=== PATIENT | female | born 2000 | race Caucasian/White ===

== ENCOUNTER → 2018-02-03 12:13 | Outpatient (CLI) | payer OTHER, SELFPAY ==
[2018-02-03 20:08] LABS: Urine N gonorrhoeae NOT DETECTED
[2018-02-03 20:15] LABS: Urine Chlamydia NOT DETECTED
== END ==
PROVIDERS: Family Provider Pediatrics; PCP Pediatrics; Visit Provider Specialist
DX: Z11.3 Encounter for screening for infections with a predominantly sexual mode of transmission (principal); Z11.8 Encounter for screening for other infectious and parasitic diseases
CPT/HCPCS: 87491; 87591

== ENCOUNTER → 2018-03-28 10:28 | Outpatient (CLI) | payer OTHER, SELFPAY ==
[2018-03-28 11:05] LABS: Appearance Urine UA SL CLOUDY; Bilirubin Urine UA NEGATIVE (NEGATIVE); Color Urine UA YELLOW; Glucose Urine UA NEGATIVE (Normal); Ketones Urine UA TRACE (NEGATIVE); Leukocyte Esterase Urine UA 1+ (NEGATIVE); Nitrite Urine UA Negative (Negative); Occult Blood Urine UA TRACE-LYSED (Negative); Protein Urine UA TRACE (Negative); Urobilinogen Urine UA 0.2 E.U./dL (0.2); pH Urine UA 6.5 (4.5-8.0)
[2018-03-28 11:52] LABS: RBC Urine 1-5/HPF (0-5/HPF)
[2018-03-28 11:53] LABS: Bacteria Urine Many (>30); Culture Indicated Urine Specimen Cultured; Mucus Urine 1+ (Negative); WBC Urine >100/HPF (0-5/HPF)
[2018-03-28 12:30] LABS: Urine N gonorrhoeae NOT DETECTED
[2018-03-28 13:43] LABS: Urine Chlamydia NOT DETECTED
== END ==
PROVIDERS: Family Provider Pediatrics; PCP Pediatrics; Visit Provider Specialist
DX: R30.0 Dysuria (principal); R82.90 Unspecified abnormal findings in urine
CPT/HCPCS: 81001; 87077; 87086; 87186; 87491; 87591

== ENCOUNTER → 2019-03-05 09:12 | Outpatient (CLI) | payer OTHER, SELFPAY ==
[2019-03-05 10:40] LABS: HCG Quantitative /Beta subunit 34525 mIU/mL
== END ==
PROVIDERS: Visit Provider Specialist
DX: O26.90 Pregnancy related conditions, unspecified, unspecified trimester (principal); Z32.01 Encounter for pregnancy test, result positive
CPT/HCPCS: 36415; 84702

== ENCOUNTER → 2019-03-21 12:33 | Outpatient (CLI) | payer MEDICAID, SELFPAY ==
[2019-03-21 13:06] LABS: Add Manual Diff / Slide Review NO; Basophils Absolute Auto 0 /uL (0-100); Basophils Percent Auto 0.6 % (0-2); Eosinophils Absolute Auto 0 /uL (0-450); Eosinophils Percent Auto 0.3 % (2-4); Hematocrit 39.7 % (36-46); Hemoglobin 13.5 g/dL (12.0-16.0); Lymphocytes Absolute Auto 1800 /uL (1100-4500); Lymphocytes Percent Auto 32.8 % (25-40); Mean Corpuscular HGB Conc 34.1 % (30-36); Mean Corpuscular Hemoglobin 30.4 PG (26-34); Mean Corpuscular Volume 89.3 fL (80-100); Monocytes Absolute Auto 400 /uL (0-900); Monocytes Percent Auto 6.9 % (3-14); Neutrophils Absolute Auto 3300 /uL (1500-7000); Neutrophils Percent Auto 59.4 % (50-75); Platelet Count 198 X10^3/uL (150-400); Red Blood Cell Count 4.45 X10^6/uL (4.0-5.2); Red Cell Distribution Width 13.3 % (11.6-14.8); White Blood Cell Count 5.5 X10^3/uL (4.5-11.0)
[2019-03-21 13:06] LABS: Appearance Urine UA CLEAR; Bilirubin Urine UA NEGATIVE (NEGATIVE); Color Urine UA YELLOW; Glucose Urine UA NEGATIVE (Negative); Ketones Urine UA 3+ (NEGATIVE); Leukocyte Esterase Urine UA NEGATIVE (NEGATIVE); Nitrite Urine UA NEGATIVE (Negative); Occult Blood Urine UA NEGATIVE (Negative); Protein Urine UA TRACE (Negative); Urobilinogen Urine UA 0.2 E.U./dL (0.2)
[2019-03-21 17:11] LABS: Hepatitis B Surface Antigen NEGATIVE s/c (NEGATIVE)
[2019-03-21 17:28] LABS: HIV 1 & 2 Ab/Ag 4th Gen Combo NEGATIVE (NEGATIVE); Hep C Virus Ab w/Reflex Quant NEGATIVE s/c (NEGATIVE)
[2019-03-23 22:07] LABS: RPR Screen Nonreactive (Nonreactive)
== END ==
PROVIDERS: Visit Provider Obstetrics & Gynecology
DX: Z34.91 Encounter for supervision of normal pregnancy, unspecified, first trimester (principal)
CPT/HCPCS: 36415; 80055; 81003; 86787; 86803; 86850; 86900; 86901; 87086; 87389

== ENCOUNTER → 2019-03-26 14:16 | Outpatient (CLI) | payer OTHER, SELFPAY ==
[2019-03-26 16:51] LABS: Urine Chlamydia NOT DETECTED; Urine N gonorrhoeae NOT DETECTED
== END ==
PROVIDERS: Visit Provider Obstetrics & Gynecology
DX: Z11.3 Encounter for screening for infections with a predominantly sexual mode of transmission (principal)
CPT/HCPCS: 87491; 87591

== ENCOUNTER → 2019-06-15 14:20 | Outpatient (CLI) | payer OTHER, MEDICAID, SELFPAY ==
--- NOTE | 2019-06-15 14:22 | DI.US.S_ITS ---
PROCEDURE: US OB >= 14 WEEKS FETUS INDICATIONS: ANATOMY OUTSIDE/PRIOR DATING DATA: Last menstrual period (LMP): 01/15/19. LMP-based estimated date of delivery (YAHIR): 10/22/19. First dating scan (date and location): 04/05/19. Estimated date of delivery (YAHIR) from first dating scan: 10/27/19. TECHNIQUE: Real-time scanning was performed of the fetus, with image documentation and biometric measurements. COMPARISON: [facility], , OB >= 14 WEEKS FETUS, 05/24/2019, 16:00. FINDINGS: General: A single living intrauterine gestation is present. Presentation: Vertex. Placenta: Placental position is anterior, without previa. Amniotic fluid index: 14.0 cm, normal range is 5-24 cm. heart rate: 144 beats per minute. Maternal cervical canal: 3.1 cm long. Normal lower limit is 2.5 cm. biometrics: Biparietal diameter: 22 weeks Head circumference: 21 weeks 6 days Abdominal circumference: 21 weeks 6 days Femur length: 20 weeks 1 day Estimated gestational age from initial scan: 20 weeks 6 days Composite gestational age from present scan: 21 weeks 3 days Estimated weight and percentile: Prior 7 g; 65th percentile Measurement variability for biometric dating: +/- 7 days from 14 weeks to 15 weeks 6 days gestation, +/- 10 days from 16 weeks to 21 weeks 6 days gestation, +/- 2 weeks from 22 weeks to 27 weeks 6 days gestation, +/- 3 weeks for 28 weeks gestation or later. weight reference: 4500 g or EFW >90/95% is considered macrosomia or large for gestational age. EFW <10% is small for gestational age. EFW 5% or less is considered intra-uterine growth restriction. Anatomic survey: Neuro: Ventricles are non-dilated at less than 10 mm. Cisterna magna is normal at 3-11 mm. Cerebellum is normal in size and morphology. Nuchal skin fold: Normal at less than 6 mm between 14-21 weeks gestational age. Face: Nose and lips, facial profile are normal. Spine: No evidence for spina bifida. Heart: 4-chambered heart is present, with normal ventricular outflow tracts. Diaphragm: Diaphragm is intact. Stomach: Left-sided stomach is present. Kidneys: No hydronephrosis. Normal is less than 5 mm in 2nd trimester, less than 7 mm in 3rd trimester. Cord: 3-vessel cord has orthotopic insertion. Bladder: Normal in size. Extremities: All 4 extremities identified. IMPRESSION: 1. Single living IUP redemonstrated and interval growth is normal. 2. Normal anatomic survey. Dictated by: Dev SHER Interpreted: Thomas Argueta MD on 06/15/2019 at 15:04 Approved by: Thomas Argueta M.D. on 06/15/2019 at 16:52
== END ==
PROVIDERS: Visit Provider Obstetrics & Gynecology
DX: Z34.02 Encounter for supervision of normal first pregnancy, second trimester (principal); Z3A.21 21 weeks gestation of pregnancy
CPT/HCPCS: 76811

== ENCOUNTER → 2019-08-20 10:22 | Outpatient (CLI) | payer OTHER, MEDICAID, SELFPAY ==
[2019-08-20 12:07] LABS: Hematocrit 32.7 % (36-46); Hemoglobin 11.2 g/dL (12.0-16.0)
[2019-08-20 12:16] LABS: GTT (PREG) 1 Hour PP 50gm Dose 70 mg/dL (76-139)
== END ==
PROVIDERS: PCP Family Medicine; Referring Provider Family Medicine; Visit Provider Family Medicine
DX: Z34.83 Encounter for supervision of other normal pregnancy, third trimester (principal); Z3A.28 28 weeks gestation of pregnancy
CPT/HCPCS: 82950; 85014; 85018

== ENCOUNTER → 2019-10-05 12:20 | Outpatient (CLI) | payer OTHER, MEDICAID, SELFPAY ==
[2019-10-06 09:37] LABS: Strep Grp B PCR NEG for Grp B Strep
== END ==
PROVIDERS: PCP Family Medicine; Visit Provider Family Medicine
DX: Z34.03 Encounter for supervision of normal first pregnancy, third trimester (principal)
CPT/HCPCS: 87653

== ENCOUNTER 2019-10-29 22:05 | Observation (INO) | payer OTHER, MEDICAID, SELFPAY ==
--- NOTE | 2019-10-29 23:44 | PM.OBTRLD ---
Visit Information Visit Information Date of evaluation: 10/29/19 Primary OB Provider: Nadia Peterson On-call OB Provider: Re Painter Reason for Evaluation: Yes rule out labor Vital Signs Vital Signs: BP 128/85, HR105, T97.1F Temporal PFSH Medical History CVS disease (Chronic) Heavy menstrual period (Chronic) Social History Smoking Status: Never smoker Review of Systems Review of Systems ROS: Yes All systems reviewed with the patient and are negative except as otherwise documented Exam Narrative Exam Narrative: CE by RN: /-3, posterior, intact, cephalic Evaluation Evaluation Baseline heart rate: 135 Variability: Moderate (11-25) monitor accelerations: Present monitor decelerations: Absent Contraction Frequency (minutes): 3 Uterine Contraction Intensity: Moderate Category of Tracing: I Cervical dilation (cm): 2 Cervical effacement (%): 75 station: -3 Diagnosis, Plan/Disposition Plan/Disposition Plan: RN to repeat CE in 2 hours. If no change or <3cm, d/c to home. If >3cm, admit for labor. OB Disposition: home
== END 2019-10-30 00:15 | disposition home or self-care (01) ==
PROVIDERS: Admitting Provider Nurse Practitioner Obstetrics & Gynecology; PCP Family Medicine; Referring Provider Nurse Practitioner Obstetrics & Gynecology; Visit Provider Nurse Practitioner Obstetrics & Gynecology
DX: O47.9 False labor, unspecified (principal)
CPT/HCPCS: 59025; 59050; G0378; G0379

== ENCOUNTER 2019-10-30 05:38 | Inpatient (IN) | payer OTHER, MEDICAID, SELFPAY ==
[2019-10-30 06:58] LABS: Add Manual Diff / Slide Review NO; Basophils Absolute Auto 0 /uL (0-100); Basophils Percent Auto 0.1 % (0-2); Eosinophils Absolute Auto 0 /uL (0-450); Hemoglobin 11.8 g/dL (12.0-16.0); Lymphocytes Absolute Auto 1000 /uL (1100-4500); Lymphocytes Percent Auto 7.2 % (25-40); Mean Corpuscular HGB Conc 32.8 % (30-36); Mean Corpuscular Hemoglobin 29.3 PG (26-34); Mean Corpuscular Volume 89.4 fL (80-100); Monocytes Absolute Auto 700 /uL (0-900); Monocytes Percent Auto 5.2 % (3-14); Neutrophils Absolute Auto 12200 /uL (1500-7000); Neutrophils Percent Auto 87.5 % (50-75); Platelet Count 256 X10^3/uL (150-400); Red Blood Cell Count 4.03 X10^6/uL (4.0-5.2); Red Cell Distribution Width 15.1 % (11.6-14.8); White Blood Cell Count 13.9 X10^3/uL (4.5-11.0)
--- NOTE | 2019-10-30 08:38 | P.HPOB_ITS ---
OB HPI Date/Time Date of admission: 10/30/19 Date Patient Seen: 10/30/19 Time Patient Seen: 07:00 History of Present Condition Chief complaint: Labor & Delivery : 1 Para: 0 Estimated Date of Delivery: 10/27/19 Estimated Gestational Age (weeks): 40w3d Narrative: Yue Costello is a 19 year old at 40w3d who presented in active labor with SROM at home. Pt reports having a gush of fluid around 12:45am. She denies any vaginal bleeding. She had been having regular painful contractions prior to that time without cervical change, evaluated in L&D, that increased in frequency and intensity after SROM. History of Present care: good care and initiated at week # (9) Dating criteria: based on 1st trimester US only Ultrasounds: normal 1st trimester US and normal mid trimester US Obstetrical complications: none Medical complications: none Preadmission Labs Blood type: O (+) positive -: Antibody screen: negative, GBS status: negative, HBsAG: negative, HIV: negat marco a and RPR/VDLR: negative -: Chlamydia screen: not detected and Gonorrhea screen: not detected -: Rubella: not immune and Varicella: immune HCT: 32.7 HCAB: negative Urine: Negative 1 hr GTT: 70 Evaluation Evaluation Baseline heart rate: 135 Variability: Moderate (11-25) monitor accelerations: Present monitor decelerations: Absent Contraction Frequency (minutes): 3 Uterine Contraction Intensity: Strong/Firm Category of Tracing: I Cervical dilation (cm): 10 Cervical effacement (%): 100 station: +3 Laboratory results: Laboratory Tests 10/30/19 10/30/19 06:15 06:15 WBC 13.9 H RBC 4.03 Hgb 11.8 L Hct 36.0 MCV 89.4 MCH 29.3 MCHC 32.8 RDW 15.1 H Plt Count 256 Neut % (Auto) 87.5 H Lymph % (Auto) 7.2 L Thomas % (Auto) 5.2 Eos % (Auto) 0.0 L Baso % (Auto) 0.1 Neut # (Auto) 28418 H Lymph # (Auto) 1000 L Thomas # (Auto) 700 Eos # (Auto) 0 Baso # (Auto) 0 Blood Type O Positive Antibody Screen Negative [facility] Social History Smoking Status: Never smoker Meds Home Medications and Allergies Home Medications Medication Instructions Recorded Confirmed Type prenat.vits,kleber,bjd-fueb-rczrq 1 tab PO DAILY 03/21/19 10/23/19 History citalopram 10 mg tablet 10 mg PO DAILY #30 tab 05/16/19 10/23/19 Rx hydroxyzine HCl 25 mg tablet 25 mg PO TID PRN #20 tab 05/16/19 10/23/19 Rx Allergies Allergy/AdvReac Type Severity Reaction Status Date / Time No Known Drug Allergies Allergy Verified 10/23/19 11:18 Exam Vital Signs (past 8 hours): Gen: NAD, sitting in bed, appears well, pain with contractions CV: RRR, no murmurs Resp: clear to auscultation bilaterally Abd: soft, gravid Ext: trace edema Objective Labs Result Diagrams: 10/30/19 06:15 Labs: Laboratory Results - last 24 hr 10/30/19 10/30/19 06:15 06:15 WBC 13.9 H RBC 4.03 Hgb 11.8 L Hct 36.0 MCV 89.4 MCH 29.3 MCHC 32.8 RDW 15.1 H Plt Count 256 Neut % (Auto) 87.5 H Lymph % (Auto) 7.2 L Thomas % (Auto) 5.2 Eos % (Auto) 0.0 L Baso % (Auto) 0.1 Neut # (Auto) 63672 H Lymph # (Auto) 1000 L Thomas # (Auto) 700 Eos # (Auto) 0 Baso # (Auto) 0 Blood Type O Positive Antibody Screen Negative Assessment and Plan Assessment and Plan Assessment and Plan narrative: 19yo at 40w3d here in active labor with SROM at home. GBS negative, Rh positive. - Expectant management, anticipate - GBS negative, no prophylaxis indicated - Natural methods for pain control, no epidural desired - FHT reassuring
--- NOTE | 2019-10-30 08:38 | P.PCNOB_ITS ---
Labor & Delivery Delivery date: 10/30/19 Intrapartal events: None Cervical ripening method: none Induction method: none Delivery monitor: external FHT Route of delivery: Episiotomy description: None L&D Laceration Description: Perineal - 2nd Degree and Labial Estimated blood loss (mL): 200 Anesthesia type: None Complications: None Narrative: PROCEDURE: at 40w3d presented in active labor with SROM and was admitted to Labor and Delivery. The patient progressed through the 1st stage over 12 hours. Pain was controlled by natural methods. The patient progressed through the 2nd stage over 35 minutes and delivered a viable male infant with APGARs 8/9 at 7:35am via without complications. The perineum and vagina were inspected with 2nd degree perineal laceration repaired with 2-O Chromic and right labial laceration repaired with 4-O Chromic. PREPROCEDURE DIAGNOSIS: Intrauterine at 40w3d GBS negative RH positive POSTPROCEDURE DIAGNOSIS: Intrauterine at 40w3d, delivered Same as preprocedure ROM APPEARANCE: Clear BABY A DELIVERY TIME: 7:35 BABY A WEIGHT: 7lb4oz BABY A NUCHAL CORD: No PLACENTA DELIVERY TIME: 7:41 PLACENTA APPEARANCE: Intact [place] Baby 1: Infant gender: Male Presentation: vertex position: Right Occiput Anterior Placenta delivery description: Spontaneous cord vessel description: 3 Vessels score (1 min): 8 score (5 min): 9 Plan for aftercare: Normal care
--- NOTE | 2019-10-31 09:19 | P.DS_ITS ---
Discharge Providers Provider Date of admission: 10/30/19 05:38 Discharge Date: 10/31/19 Primary care physician: Nadia Peterson MD Consults: 10/31/19 10:41 Consult to [employer] Maintainer Routine Comment: Discharge provider: Nadia Peterson MD Summary Hospital Course Date Patient Seen: 10/31/19 Time Patient Seen: 09:19 Procedures: Spontaneous vaginal delivery Hospital Course: The pt presented in active labor with SROM at home. She progressed to complete with natural methods for pain control. She had a of a viable baby boy on 10/30/19 without complications. A 2nd degree perineal and right labial laceration were repaired. , there were no complications. At the time of discharge, she was voiding, ambulating, and passing flatus without difficulty. Her lochia was decreasing appropriately. Her pain was well controlled. She was with good latch. She will f/u in 6 weeks for check. Peripartum Data Infant Delivery Method: Natural Vaginal Laceration description: Perineal - 2nd Degree Episiotomy description: None Procedures: Spontaneous vaginal delivery complications: none 1: Gender: Male Disposition of : home Discharge Diagnosis (1) (spontaneous vaginal delivery): Status: Acute Status at Discharge Cognitive/behavioral status at discharge: oriented Functional status at discharge: independent ambulation Overall status at discharge: patient is progressing back to baseline Time Spent with Patient Time attestation: Total time spent providing and/or coordinating discharge services: Time spent: Greater than 30 minutes Objective Labs Result Diagrams: 10/30/19 06:15 Discharge Plan Discharge Plan Patient Disposition: Home Discharge orders & Medications Prescriptions: New acetaminophen 325 mg Tablet 650 mg PO Q6HR PRN (Reason: Pain, Mild (1-3)) Qty: 30 RF: 0 Dermoplast (with menthol) 20-0.5 % Aerosol 1 spray topical Q1HR PRN (Reason: perineal pain) Qty: 56 RF: 0 docusate sodium [DOK] 100 mg Capsule 100 mg PO DAILY Qty: 30 RF: 0 ibuprofen 600 mg Tablet 600 mg PO Q6HR PRN (Reason: Pain, Mild (1-3)) Qty: 30 RF: 0 Tml-P-Vrmlym Cream 1 applic topical PRN PRN (Reason: Tenderness) Qty: 15 RF: 0 Continued prenat.vits,kleber,zem-natw-mzrkv tablet 1 tab PO DAILY RF: 0 Discontinued hydroxyzine HCl 25 mg tablet 25 mg PO TID PRN (Reason: anxiety) Qty: 20 RF: 3 citalopram [Celexa] 10 mg tablet 10 mg PO DAILY Qty: 30 RF: 3 Follow up/Referrals: Nadia Peterson MD [Primary Care Provider] - 12/19/19 11:30 am Skin/Wound/Dressing Care Report to your healthcare provider any signs of infection, such as:: chills, fever, increased pain and unusual drainage Visit Report/Discharge Packet Stand Alone Forms: Discharge: Care Visit Report Forms: Patient Portal/API, Stroke Signs & Symptoms Discharge Data Primary Care Provider: Nadia Peterson Discharges patient from system. Discharge Date/Time: 10/31/19 11:00
[2019-10-31 09:54] VITALS: BP 114/70; PULSE 80; RESP 18; TEMP 37.1
== END 2019-10-31 11:00 | disposition home or self-care (01) | DRG 807 ==
PROVIDERS: Admitting Provider Family Medicine; PCP Family Medicine; Referring Provider Family Medicine; Visit Provider Family Medicine
DX: O70.1 Second degree perineal laceration during delivery (principal); Z37.0 Single live birth; Z3A.40 40 weeks gestation of pregnancy
CPT/HCPCS: 59025; 59050; 59400; 85025; 86850; 86900; 86901; G0378; G0379